=== PATIENT | female | born 1970 | race Caucasian/White ===

== ENCOUNTER 2018-10-30 10:55 | Outpatient (CLI) | payer OTHER ==
[2018-10-30 13:00] LABS: Hematocrit 41.1 % (30.3-42.9); Hemoglobin 14.2 gm/dl (10.1-14.3); Mean Corpuscular HGB Conc 34 % (30-34); Mean Corpuscular Volume 90 fl (79-97); Platelet Count 207 K/mm3 (140-440); Red Blood Count 4.57 M/mm3 (3.65-5.03); Red Cell Distribution Width 12.6 % (13.2-15.2)
[2018-10-30 13:29] LABS: Erythrocyte Sedimentation Rate 6 mm/Hr (0-20)
[2018-10-30 14:08] LABS: Alanine Aminotransferase 57 units/L (7-56); Albumin 4.3 g/dL (3.9-5); BUN/Creatinine Ratio 28; Blood Urea Nitrogen 11 mg/dL (7-17); Calcium 8.9 mg/dL (8.4-10.2); Chol/HDL Ratio 4.75 %; HDL Cholesterol 40 mg/dL (40-59); Hemolysis Index 6; LDL Cholesterol,Direct 143 mg/dL (50-130)
[2018-11-04 06:22] LABS: Vitamin D, 25-OH, D2 SEE SCANNED RESULTS
== END 2018-10-30 10:56 | disposition home or self-care (01) ==
LOC: LAB 10:55
PROVIDERS: ATTEND Internal Medicine
DX: Z00.01 Encounter for general adult medical examination with abnormal findings (principal); E78.5 Hyperlipidemia, unspecified; M06.4 Inflammatory polyarthropathy; R73.9 Hyperglycemia, unspecified
CPT/HCPCS: 36415; 80053; 80061; 82306; 82607; 83036; 84443; 85027; 85652; 86140; 86200; 86618; 87806

== ENCOUNTER 2019-02-12 08:37 | Outpatient (CLI) | payer OTHER ==
[2019-02-12 11:17] LABS: Alanine Aminotransferase 99 units/L (7-56); Albumin 4.3 g/dL (3.9-5); Chol/HDL Ratio 5.34 %; HDL Cholesterol 43 mg/dL (40-59); LDL Cholesterol,Direct 180 mg/dL (50-130)
[2019-02-12 11:21] LABS: Bilirubin,Direct < 0.2 mg/dL (0-0.2)
[2019-02-12 11:57] LABS: Hepatitis B Surface Antigen Non-Reactive (Negative); Hepatitis C Virus Antibody Non-Reactive (NonReactive)
== END 2019-02-12 08:38 | disposition home or self-care (01) ==
LOC: LAB 08:37
PROVIDERS: ATTEND Internal Medicine
DX: E78.5 Hyperlipidemia, unspecified (principal); E66.09 Other obesity due to excess calories; R74.0 Nonspecific elevation of levels of transaminase and lactic acid dehydrogenase [LDH]; R73.03 Prediabetes
CPT/HCPCS: 36415; 80061; 80074; 80076

== ENCOUNTER 2019-04-17 11:24 | Outpatient (CLI) | payer OTHER ==
[2019-04-17 12:35] LABS: Alanine Aminotransferase 107 units/L (7-56); Albumin 4.4 g/dL (3.9-5); Chol/HDL Ratio 5.11 %; HDL Cholesterol 43 mg/dL (40-59); LDL Cholesterol,Direct 161 mg/dL (50-130)
[2019-04-17 12:48] LABS: Bilirubin,Direct < 0.2 mg/dL (0-0.2)
== END 2019-04-17 11:25 | disposition home or self-care (01) ==
LOC: LAB 11:24
PROVIDERS: ATTEND Internal Medicine
DX: R73.03 Prediabetes (principal); R74.0 Nonspecific elevation of levels of transaminase and lactic acid dehydrogenase [LDH]; E78.5 Hyperlipidemia, unspecified
CPT/HCPCS: 36415; 80061; 80076; 83036; 84443

== ENCOUNTER 2019-04-23 07:26 | Outpatient (CLI) | payer OTHER ==
--- NOTE | 2019-04-23 09:43 | Ultrasound Report ---
LIMITED RUQ ABDOMINAL ULTRASOUND INDICATION: R74.0 NONSPECIFIC ELEVATION OF LEVELS OF TRANSAMINASE AND LACTIC. COMPARISON: No relevant prior imaging study available. FINDINGS: Pancreas: Visualized portions show no significant abnormality. Abdominal Aorta: No significant abnormality. IVC: No significant abnormality. Liver: The liver measures 11.4 cm in length. There is moderate diffuse fatty infiltration throughout the liver. No obvious liver lesion or surface nodularity.. Doppler interrogation of the portal vein and hepatic veins is limited secondary to the fatty liver.. Gallbladder: A small amount of sludge is identified in the gallbladder. No shadowing stones, abnormal dilatation or wall thickening.. Bile ducts: No significant abnormality. Common bile duct measures 3.5 mm. Right kidney: No significant abnormality visualized.. Free fluid: None. Additional Findings: None. IMPRESSION: Hepatic steatosis. Small amount of sludge in the gallbladder.. Signer Name: Ramon Donis Jr, MD Signed: 04/23/2019 9:39 AM Workstation Name: [id number]
--- NOTE | 2019-04-23 17:19 | Vascular Lab Report ---
Duplex arterial ultrasound of the right lower extremity INDICATION: Intermittent pain and swelling of the ankle and foot FINDINGS: There is triphasic flow to the level of the feet. Images show minimal plaque formation. The re are no occlusions or significantly elevated velocities to suggest critical stenosis and no evidenc e of any significant peripheral arterial disease in the right leg. Signer Name: Landon Catalan MD Signed: 04/23/2019 5:15 PM Workstation Name: [id number]
== END 2019-04-23 07:27 | disposition home or self-care (01) ==
LOC: US 07:26
PROVIDERS: ATTEND Internal Medicine
DX: K76.0 Fatty (change of) liver, not elsewhere classified (principal); K82.8 Other specified diseases of gallbladder
CPT/HCPCS: 76705; 93925

== ENCOUNTER 2021-07-11 11:50 | Outpatient (CLI) | payer OTHER ==
--- NOTE | 2021-07-11 13:35 | XRay Report ---
Left shoulder 3 views INDICATION: Pain FINDINGS: There are calcifications beneath the chromium just inferior to the humeral head which could represent calcific tendinopathy. No dislocation is seen. No acute fracture. Mild AC degenerative margot nge. Signer Name: Manolo Vega MD Signed: 07/11/2021 1:31 PM Workstation Name: [id number]
== END 2021-07-11 11:51 | disposition home or self-care (01) ==
LOC: XRAY 11:50
PROVIDERS: ATTEND Internal Medicine
DX: M19.012 Primary osteoarthritis, left shoulder (principal)

== ENCOUNTER 2022-02-27 10:46 | Outpatient (CLI) | payer OTHER ==
[2022-02-27 12:47] LABS: Alanine Aminotransferase 110 units/L (7-56); Albumin 4.8 g/dL (3.9-5); Blood Urea Nitrogen 8 mg/dL (7-17); Calcium 9.6 mg/dL (8.4-10.2); HDL Cholesterol 40 mg/dL (40-59); Hemolysis Index 6; LDL Cholesterol,Direct 141 mg/dL (50-130)
[2022-02-27 13:00] LABS: Basophils % (Auto) 0.3 % (0.0-1.8); Eosinophils # (Auto) 0.1 K/mm3 (0.0-0.4); Eosinophils % (Auto) 1.3 % (0.0-4.3); Hematocrit 42.1 % (30.3-42.9); Hemoglobin 14.8 gm/dl (10.1-14.3); Lymphocytes # (Auto) 1.9 K/mm3 (1.2-5.4); Lymphocytes % (Auto) 32.5 % (13.4-35.0); Mean Corpuscular HGB Conc 35 % (30-34); Mean Corpuscular Volume 89 fl (79-97); Monocytes # (Auto) 0.3 K/mm3 (0.0-0.8); Platelet Count 196 K/mm3 (140-440); Red Blood Count 4.75 M/mm3 (3.65-5.03); Red Cell Distribution Width 12.8 % (13.2-15.2)
[2022-02-27 13:04] LABS: BUN/Creatinine Ratio 16
[2022-02-27 13:25] LABS: Creatinine,Urine 210.2 mg/dL (0.1-20.0)
[2022-02-27 13:26] LABS: Microalbumin/Creatinine Ratio 8.5 ug/mg
== END 2022-02-27 10:47 | disposition home or self-care (01) ==
LOC: LABHHL 10:46
PROVIDERS: ATTEND Internal Medicine
DX: E11.9 Type 2 diabetes mellitus without complications (principal); E55.9 Vitamin D deficiency, unspecified; E78.5 Hyperlipidemia, unspecified; E03.9 Hypothyroidism, unspecified
CPT/HCPCS: 36415; 80053; 80061; 82043; 82306; 83036; 84443; 85025